=== PATIENT | female | born 1965 | race Two or more races ===

== ENCOUNTER → 2022-03-01 12:57 | Outpatient (CLI) | payer SELFPAY ==
--- NOTE | 2022-03-01 12:58 | CT_ITS ---
FINAL REPORT CLINICAL HISTORY: . FAMILY HX CAD, CHEST PAIN FINDINGS: CT CORONARY CALCIUM SCORE WITHOUT TECHNIQUE: Thin-section axial images were obtained through the heart and coronary arteries per CT coronary calcium score protocol. This study was performed with techniques to keep radiation doses as low as reasonably achievable, (ALARA). Individualized dose reduction techniques using automated exposure control or adjustment of mA and/or kV according to the patient's size were employed. FINDINGS: On the axial images, there is calcification within the LAD. This gives a coronary artery calcium score of 33.38 based on the Agatston scale. This patient has coronary artery score places them within the 79 percentile based on age and gender. The heart size is normal. There is ectasia of the ascending aorta measuring up to 42 mm. There are multiple mildly enlarged mediastinal lymph nodes which are nonspecific. There is no pleural or pericardial effusion. Limited evaluation of the lungs revealed no suspicious nodule. IMPRESSION: Coronary artery calcium score of 33.38 placing the patient within the 79th percentile based on age and gender. Ectasias of the ascending aorta measuring up to 42 mm. Mildly enlarged mediastinal lymph nodes, nonspecific. Reviewed, Interpreted and Dictated by John Pollock III, MD Transcribed by Paige Gomez Authenticated and [facility]
== END ==
PROVIDERS: PCP Family Medicine; Visit Provider Internal Medicine Cardiovascular Disease
DX: R06.00 Dyspnea, unspecified (principal); R07.9 Chest pain, unspecified; R42 Dizziness and giddiness; R94.31 Abnormal electrocardiogram [ECG] [EKG]
CPT/HCPCS: 75571

== ENCOUNTER → 2022-03-01 13:21 | Outpatient (CLI) | payer OTHER, SELFPAY ==
--- NOTE | 2022-03-01 13:22 | CA_ITS ---
APPROVED REPORT EXAM: Comprehensive 2D, Doppler, and color-flow Echocardiogram Manager Paid: Jael Mejía CRT Ht: 5 ft 6 in Wt: 285lbs BSA: 2.32 BP: 110/68 mmHg Indications: Abnormal ECG, Chest Pain, Shortness of Breath, Diabetes, Dizziness and Vertigo 2D Dimensions LVOT 2.18 cm (M/F) 1.5-2.5 LA Volume 79.30 mL LA Volume Index 34.00 mL/m2 (M/F) 16-34 M-Mode Dimensions RVDd 2.42 cm (0.9-2.6) LA Diam 4.35 cm (1.9-4.0) LVDd 5.41 cm (3.5-5.7) Ao Diam 3.28 cm (2.0-3.7) LVDs 3.71 cm (3.5-5.7) IVSd 1.57 cm (0.6-1.1) PWd 1.13 cm (0.6-1.1) EF (Teich) 58.80% FS 31.40% EDV (Teich) 141.90 mL TAPSE 2.10 (<1.7) ESV (Teich) 58.50 mL LV Diastology E Decel Time 213.00 (160-240 msec) E/A Ratio 1.22 MED E' 6.20 (< 7 cm/sec) MED A' 10.30 cm/s E'/MED E' Ratio 17.69 (>14) LAT E' 8.50 (<10 cm/sec) LAT A' 13.10 cm/s E/LAT E' Ratio 12.91 (>14) Aortic Valve AI PHT 330.00 ms AO Peak GR. 11.90 mmHg Mitral Valve MV E Max Caleb. 110.00 (40-130 cm/s) MV A Velocity 90.00 (40-130 cm/s) E/A Ratio 1.22 MV Decel. Time 213.00 (160-240 ms) MV PHT 62.00 ms Pulmonary Valve PV Peak Velocity 95.00 (50-150 cm/s) Tricuspid Valve TR P. Velocity 233.00 cm/s RAP Estimate 10.00 mmHg RVSP 31.70 mmHg Left Ventricle Left atrium is mildly enlarged, left ventricle is normal size, left ventricle wall thickness is upper limit of the normal. Estimated ejection fraction 55% with no regional wall motion abnormality, diastolic parameters are inconclusive. Right Ventricle Right atrium and right ventricle are mildly enlarged with normal contractility. Aortic Valve Aortic valve is minimally thickened and fibrosed there is no aortic stenosis, there is trace aortic insufficiency. Mitral Valve Mitral valve is grossly normal, there is trace mitral regurgitation. Tricuspid Valve Tricuspid grossly normal, there is trace tricuspid regurgitation, tricuspid regurgitation jet velocity is inadequate for calculation of the right ventricular systolic pressure. Pulmonic Valve Pulmonic valve is poorly visualized. Great Vessels Aortic root is normal size. Inferior vena cava normal size with normal inspiratory collapse. Pericardium No significant pericardial effusion noted. Conclusion 1. Mildly enlarged left atrium, normal left ventricular size, estimated ejection fraction 55% with no regional wall motion abnormality, diastolic parameters are inconclusive. 2. Mildly enlarged right ventricle with normal contractility. 3. Trace aortic, mitral and tricuspid regurgitation. 4. No significant pericardial effusion. 5. Inferior vena cava is normal 7 normal inspiratory collapse. Electronically signed by : Adalid Muller MD 03/01/2022 14:13:45
== END ==
LOC: RT 13:22
PROVIDERS: PCP Family Medicine; Visit Provider Internal Medicine Cardiovascular Disease
DX: R06.00 Dyspnea, unspecified (principal); R07.9 Chest pain, unspecified; R42 Dizziness and giddiness; R94.31 Abnormal electrocardiogram [ECG] [EKG]
CPT/HCPCS: 93306